=== PATIENT | female | born 2000 | race African-American/Black ===

== ENCOUNTER 2020-07-17 11:12 | Inpatient (IN) | payer BC ==
[2020-07-17] VITALS (8 sets, daily range): BP systolic 116–143; BP diastolic 53–115
[~2020-07-17] VITALS: Ht 162.6 cm; Wt 54.4 kg
--- NOTE | ~2020-07-17 | EMS ---
[address] [address] EMS Patient Care Report Name: JESSICA HIDALGO Room #: PRE M.R.#: [id number] Admission: Attend Phys: Discharge: Date of : 99 Report #: [id number] THIS REPORT FOR: //name// Report Transmitted: 07/17/2020 10:36 EMS Care Summary [place], [place]/[facility] Incident [id number] @ 07/17/2020 10:35 Incident Location [address] [address] Patient JESSICA HIDALGO Female, 19 Years 2000 Patient Address [address] [place] [address] Patient History Asthma,Gastro-Esophageal Reflux Disease (GERD),Type 1 Diabetes, Patient Allergies No known allergies, Patient Medications Insulin, Omeprazole, Albuterol, Chief Complaint CHEST PAIN UPON TAKING A DEEP BREATH Disposition Transported No Lights/[place] Dispatch Reason Chest Pain (Non-Traumatic) Transported To [facility] Narrative DISPATCHED EMERGENCY ON A CHEST PAIN. PUMPER 42 ON SCENE UPON ARRIVAL. 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 GCS 15 AND A/OX4. PT APPEARS ANXIOUS. CONSENTS FOR TX AND TRANSPORTATION. PT STATES THAT SHE WOKE UP AROUND 8 AM WITH CHEST PAIN UPON INHALATION. ALSO [place] [id number] EMS Patient Care Report Name: JESSICA HIDALGO Room #: PRE M.R.#: [id number] Admission: Attend Phys: Discharge: Date of : 99 Report #: [id number] STATES SHE VOMITED AND HER ENTIRE ABD HURTS. DENIES ANY INJURY. ASSISTED WITHOUT INCIDENT TO STRETCHER IN AMBULANCE. PLACED ON MONITOR AND V/S'S OBTAINED. TRANSPORTED TO [facility]. REASSESSED ENROUTE. PAIN REMAINS UNCHANGED. V/S'S CONTINUOUSLY MONITORED ENROUTE. REPORT CALLED TO HOSPITAL. MOVED WITHOUT INCIDENT TO ER HOSPITAL BED 2. PT CARE TRANSFERRED TO ED RN. Initial Vitals @10:55P: 109,R: 31,SpO2: 100, @10:48P: 122,R: 20,BP: 136/83,Pain: 8/10,GCS: 15,SpO2: 100,Revised Trauma: 12,CA Suspected: false @10:53P: 100,R: 22,BP: 130/67,Pain: 8/10,GCS: 15,Revised Trauma: 12, Assessments @10:48MENTAL:Person Oriented,Time Oriented,Event Oriented,Place Oriented,SKIN:HEENT:Eyes: Right Pupil: 3-mm,Eyes: Left Pupil: 3-mm,Head/Face: No Abnormalities,Neck/Airway: No Abnormalities,LUNG SOUNDS:Left Upper: Tenderness,General: Vomiting,Right Lower: Tenderness,Right Upper: Tenderness,Left Lower: Tenderness,ABDOMEN:Left Upper: Tenderness,General: Vomiting,Right Lower: Tenderness,Right Upper: Tenderness,Left Lower: Tenderness,PELVIS//GI:EXTREMITIES:Capillary Refill: Right Lower: < 2 Sec,Capillary Refill: Right Upper: < 2 Sec,Capillary Refill: Left Lower: < 2 Sec,Capillary Refill: Left Upper: < 2 Sec,Left Arm: No Abnormalities,Right Arm: No Abnormalities,Left Leg: No Abnormalities,Right Leg: No Abnormalities,PULSE:Radial: 2+ Normal,NEURO:No Abnormalities, Impression Chest pain on breathing Procedures @10:48ALS AssessmentResponse: UnchangedSucceeded@10:48StretcherResponse: Unchanged@10:483-Lead ECGResponse: UnchangedSucceeded Timeline 10:34,Call Received 10:34,Dispatch Notified 10:35,Dispatched 10:36,En Route 10:46,On Scene 10:48,At Patient 10:48,ALS Assessment,Response: UnchangedSucceeded, 10:48,Stretcher,Response: Unchanged 10:48,3-Lead ECG,Response: UnchangedSucceeded, 10:48,BP: 136/83 M,PULSE: 122,RR: 20 R,SPO2: 100 Ox,ETCO2: ,BG: ,PAIN: 8,GCS: 15, 10:52,Depart Scene [facility] [address] [place] [address] EMS Patient Care Report Name: JESSICA HIDALGO Room #: PRE M.R.#: [id number] Admission: Attend Phys: Discharge: Date of : 99 Report #: [id number] 10:53,BP: 130/67 M,PULSE: 100,RR: 22 R,SPO2: Ox,ETCO2: ,BG: ,PAIN: 8,GCS: 15, 10:55,BP: / M,PULSE: 109,RR: 31 R,SPO2: 100 Ox,ETCO2: ,BG: ,PAIN: ,GCS: , 11:09,At Destination 11:25,Call Closed Disclaimer v1.1 Copyright 2020 [employer] This EMS Care Summary contains data elements from the applicable legal record (which may be displayed differently). It is designed to provide pertinent information for the following purposes: continuity of care, clinical quality, and state data reporting. The complete legal record is available to ED staff and administrators of the receiving hospital in [employer]'s Patient Tracker. All data is provided "as is."
[2020-07-17 11:52] LABS: BE(vivo) -25.4 mmol/L (-2 to +3); HCO3 2.9 mmol/L (22.0-26.0); PCO2 10.6 mmHg (35.0-45.0); PO2 131.7 mmHg (80.0-100.0); pH 7.052 (7.360-7.450); sO2 97.4 % (92.0-98.0)
[2020-07-17 12:01] LABS: HEMATOCRIT 40.2 % (37.0-47.0); HEMOGLOBIN 11.4 gm/dL (12.0-15.0); MCHC 28.2 g/dL (28.0-37.0); MCV 81.3 fL (80.0-100.0); PLATELET COUNT 871 thou/uL (150-400); RBC 4.95 mil/uL (4.20-5.00); RDW 16.4 % (10.5-14.5); WBC 32.7 thou/uL (4.0-11.0)
[2020-07-17 12:04] LABS: URINE BILIRUBIN NEGATIVE (Negative); URINE BLOOD TRACE (Negative); URINE CLARITY CLEAR; URINE COLOR YELLOW; URINE GLUCOSE-RANDOM* 2+ (Negative); URINE KETONES 3+ (Negative); URINE LEUKOCYTES-REFLEX NEGATIVE (Negative); URINE NITRITE-REFLEX NEGATIVE (Negative); URINE PROTEIN (DIPSTICK) TRACE (Negative); URINE SPECIFIC GRAVITY 1.025 (1.005-1.035); URINE UROBILINOGEN 0.2 E.U./dl (0.2-1.0)
[2020-07-17 12:22] LABS: ALBUMIN 4.6 g/dL (3.4-5.0); BUN 21 mg/dL (7-18); CALCIUM 10.5 mg/dL (8.5-10.1); CHLORIDE 102 mmol/L (98-107); CREATININE 1.3 mg/dL (0.6-1.0); LIPASE 158 U/L (73-393); SGOT 143 U/L (15-37); SGPT 58 U/L (14-59); SODIUM 134 mmol/L (136-145); TOTAL BILIRUBIN 0.7 mg/dL (0.2-1.0); TOTAL PROTEIN 9.8 g/dL (6.4-8.2)
[2020-07-17 12:24] LABS: ABSOLUTE NEUTROPHILS 26.5 thou/uL (1.4-8.2); ANION GAP 27 mmol/L (7-16); PLATELET ESTIMATE INCREASED
[2020-07-17 12:26] LABS: ANISOCYTOSIS 1+; HYPOCHROMASIA 1+; LARGE PLATELETS FEW; POTASSIUM 6.9 mmol/L (3.5-5.1)
[2020-07-17 12:27] LABS: CO2 < 5 mmol/L (21-32); GLUCOSE 637 mg/dL (74-106)
[2020-07-17 12:30] LABS: TARGET CELLS FEW
[2020-07-17 12:31] LABS: BURR CELLS FEW; POIKILOCYTOSIS 1+; POLYCHROMASIA SLIGHT
[2020-07-17 13:12] LABS: PHOSPHORUS 7.1 mg/dL (2.6-4.7)
[2020-07-17 13:16] LABS: MAGNESIUM 2.6 mg/dL (1.8-2.4)
--- NOTE | 2020-07-17 14:42 | NUR ---
vascular access called for picc placement. ATTEMPTED VIOLETA BRACHIAL UNABLE TO PASS PICC CATH PAST SHOULDER AREA. ALL OTHER VESSELS IN VIOLETA AND RIKY EITHER TO SMALL FOR CATHETER OR NONCOMPRESSABLE. SPOKE WITH LOC [place], THAT UNABLE PLACE PICC OR MIDLINE. PT REFUSES TO LET ME ASSESS NECK FOR CENTRAL LINE. 2ND PIV STARTED IN RAC AND LABS DRAWN.
[2020-07-17 14:51] LABS: ALBUMIN 4.5 g/dL (3.4-5.0); CALCIUM 9.5 mg/dL (8.5-10.1); CREATININE 1.3 mg/dL (0.6-1.0); PHOSPHORUS 5.1 mg/dL (2.6-4.7)
[2020-07-17 14:54] LABS: POTASSIUM 5.8 mmol/L (3.5-5.1)
--- NOTE | 2020-07-17 15:21 | EKG ---
[address] [place] [address] ELECTROCARDIOGRAM REPORT Name: JESSICA HIDALGO Room #: 170-2 ADM IN M.R.#: [id number] Admission: 07/17/20 Attend Phys: Angelito Arevalo MD Discharge: Date of : 99 Report #: [id number] [facility] ED Test Date: 2020-07-17 Test Time: 12:00:16 Pat Name: JESSICA HIDALGO Department: Room: 170 Gender: F [employer]: gorge : 2000 Requested By: Uriel Alexander Order Number: [id number] MD: Myron Gleason Measurements Intervals [place] Rate: 104 P: 92 NM: 125 QRS: 90 QRSD: 91 T: 59 QT: 360 QTc: 474 Interpretive Statements Sinus tachycardia Biatrial enlargement No previous ECG available for comparison Electronically Signed On 07-17-2020 15:21:32 [employer] by Myron Gleason [email or web address] <ELECTRONICALLY SIGNED> By: Myron Gleason MD, [facility] 07/17/20 1521 1200 [facility] Myron Gleason MD, FACC /EPI
[2020-07-17] MEDS ORDERED: OMEPRAZOLE 20 M20 M1 PO (21:17)
[2020-07-17] MEDS ORDERED: VASOTEC5 MG PO (21:17)
[2020-07-17] MEDS ORDERED: SLOW FE142 MG (21:18)
[2020-07-17 22:04] LABS: HEMATOCRIT 37.9 % (37.0-47.0); HEMOGLOBIN 10.8 gm/dL (12.0-15.0); MCHC 28.5 g/dL (28.0-37.0); MCV 80.6 fL (80.0-100.0); RBC 4.71 mil/uL (4.20-5.00); RDW 16.3 % (10.5-14.5); WBC 36.7 thou/uL (4.0-11.0)
[2020-07-17 22:23] LABS: MAGNESIUM 2.4 mg/dL (1.8-2.4); PHOSPHORUS 3.8 mg/dL (2.6-4.7)
[2020-07-17 22:24] LABS: ALBUMIN 4.1 g/dL (3.4-5.0); CALCIUM 9.5 mg/dL (8.5-10.1); CREATININE 1.2 mg/dL (0.6-1.0); POTASSIUM 5.1 mmol/L (3.5-5.1); TOTAL BILIRUBIN 0.5 mg/dL (0.2-1.0); TOTAL PROTEIN 8.7 g/dL (6.4-8.2)
[2020-07-18] VITALS (31 sets, daily range): BP systolic 96–137; BP diastolic 48–85
[2020-07-18 02:06] LABS: GLYCOHEMOGLOBIN (HGB A1C) 11.5 % (4.8-5.6)
--- NOTE | 2020-07-18 02:54 | NUR ---
This RN admitted patient to ICU room 251 at 1900. Pt on insulin and NS gtt. Patient alert and oriented upon arrival but drowsy. Complaining of weakness and generalized pain. DKA protocol initiated.
--- NOTE | 2020-07-18 02:57 | NUR ---
This RN spoke to mother, Lia at 2000 to discuss patient status and medical history, med rec done with mother at this time.
--- NOTE | 2020-07-18 02:58 | NUR ---
This RN spoke to Dale, father discussing patient status and care. All questions answered.
--- NOTE | 2020-07-18 02:58 | NUR ---
This RN spoke to Lia, mother at 0100 to discuss patient progress and status. All questions answered.
--- NOTE | 2020-07-18 02:59 | NUR ---
This RN discussed critical labs and second lab draw with Jose Nolen NP. Orders received. Will continue to monitor. Patient progressing towards goals.
--- NOTE | 2020-07-18 06:43 | NUR ---
Patient remains on low dose insulin gtt and IV fluids to maintain. Awaiting AM labs, but anion gap currently not closed. Patient stable and is progressing towards goals.
--- NOTE | 2020-07-18 07:34 | NUR ---
PT'S MOTHER GAURAV YUNG CALLED AND GOT PT UPDATE FROM RN. GAURAV STATES SHE WILL BE HERE LATER TODAY TO VISIT PATIENT.
[2020-07-18 08:06] LABS: ALBUMIN 3.7 g/dL (3.4-5.0); CALCIUM 9.2 mg/dL (8.5-10.1); DIRECT BILIRUBIN 0.1 mg/dL (<0.1-0.2); MAGNESIUM 2.4 mg/dL (1.8-2.4); PHOSPHORUS 2.4 mg/dL (2.5-4.9); TOTAL BILIRUBIN 0.6 mg/dL (0.2-1.0); TOTAL PROTEIN 7.5 g/dL (6.4-8.2)
[2020-07-18 08:10] LABS: POTASSIUM 3.6 mmol/L (3.5-5.1)
--- NOTE | 2020-07-18 08:41 | NUR ---
PT PLACED IN ISOLATION PRECAUTIONS FOR COVID-19 RULE OUT. PT'S MOTHER WAS CALLED TO BE INFORMED THAT SHE CANNOT HAVE VISITORS WHILE AWAITING RESULTS. NO ANSWER ON MOTHER'S PHONE. MESSAGE WAS LEFT THAT PT CAN NOT HAVE VISITORS AT THIS TIME.
[2020-07-18 11:49] LABS: HEMATOCRIT 33.3 % (37.0-47.0); MCH 22.8 pg (26.0-34.0); MCHC 29.9 g/dL (28.0-37.0); MCV 76.4 fL (80.0-100.0); RBC 4.36 mil/uL (4.20-5.00); RDW 15.8 % (10.5-14.5)
[2020-07-18 11:50] LABS: WBC 17.8 thou/uL (4.0-11.0)
[2020-07-18 11:51] LABS: PLATELET COUNT 613 thou/uL (150-400)
[2020-07-18 11:57] LABS: CALCIUM 9.5 mg/dL (8.5-10.1); POTASSIUM 3.3 mmol/L (3.5-5.1)
--- NOTE | 2020-07-18 12:30 | NUR ---
PT WAS PLACED IN COVID ISOLATION PRECAUTIONS AFTER PHYSICIAN ROUNDED THIS AM. PT STATED TO PHYSICIAN FEELING SOB. PT DENIES SOB TO THIS RN BUT STATES HAVING ACHES AND PAINS ALL OVER BODY. COVID SWAB SENT TO LAB THIS AM.
--- NOTE | 2020-07-18 12:39 | NUR ---
DR. THOMPSON HOSPITALIST IS MANAGING PT'S DKA, PT REMAINS ON CONTINOUS INSULIN GTT. FLUIDS WERE CHANGED BY PHYSICIAN TO SODIUM BICARB WITH D5W AND PRIOR TO THAT BEING HUNG, THAT ORDER WAS D/C'D AND NEW ORDERS WERE WRITTEN.
[2020-07-18 12:48] LABS: ABSOLUTE NEUTROPHILS 14.8 thou/uL (1.4-8.2)
[2020-07-18 12:50] LABS: ANISOCYTOSIS 1+; HYPOCHROMASIA 1+
[2020-07-18 16:37] LABS: ALBUMIN 3.2 g/dL (3.4-5.0); CALCIUM 8.5 mg/dL (8.5-10.1); MAGNESIUM 1.9 mg/dL (1.8-2.4); PHOSPHORUS 2.8 mg/dL (2.5-4.9); POTASSIUM 3.7 mmol/L (3.5-5.1)
--- NOTE | 2020-07-18 17:41 | NUR ---
PT BLADDER SCANNED AND HAD PRE VOID SCAN AMOUNT OF 568. PT VOIDED VIA COMMODE AND HAD 700MLS OF URINE OUTPUT. PT THEN BLADDER SCANNED AND HAD POST VOID SCAN AMOUNT OF ZERO. WROTE ORDER FOR POST VOID STRAIGHT CATHETER X1 NOW. PT REFUSED AND STATED SHE IS GOING THE BATHROOM WITH OUT ANY DIFFICULTY AND THAT SHE IS NOT GOING TO BE CATHERIZED AT THIS TIME.
[2020-07-18 20:25] LABS: CALCIUM 8.8 mg/dL (8.5-10.1); CREATININE 1.2 mg/dL (0.6-1.0); MAGNESIUM 1.7 mg/dL (1.8-2.4); PHOSPHORUS 1.8 mg/dL (2.6-4.7)
[2020-07-19] VITALS (45 sets, daily range): BP systolic 113–156; BP diastolic 63–91
[2020-07-19 04:08] LABS: ABSOLUTE NEUTROPHILS 7.8 thou/uL (1.4-8.2); BASOPHILS 0.4 % (0.0-2.0); HEMATOCRIT 28.6 % (37.0-47.0); HEMOGLOBIN 8.9 gm/dL (12.0-15.0); LYMPHOCYTES 22.1 % (24.0-44.0); MCHC 30.9 g/dL (28.0-37.0); MCV 74.3 fL (80.0-100.0); MONOCYTES 6.7 % (1.0-8.0); POLYS 67.8 % (36.0-66.0); RBC 3.85 mil/uL (4.20-5.00); RDW 15.8 % (10.5-14.5); WBC 11.5 thou/uL (4.0-11.0)
[2020-07-19 04:11] LABS: PLATELET COUNT 489 thou/uL (150-400)
[2020-07-19 04:19] LABS: ALBUMIN 3.2 g/dL (3.4-5.0); CALCIUM 8.7 mg/dL (8.5-10.1); CREATININE 0.9 mg/dL (0.6-1.0); MAGNESIUM 2.3 mg/dL (1.8-2.4); PHOSPHORUS 1.5 mg/dL (2.5-4.9); POTASSIUM 3.4 mmol/L (3.5-5.1); TOTAL BILIRUBIN 0.5 mg/dL (0.2-1.0); TOTAL PROTEIN 7.1 g/dL (6.4-8.2)
[2020-07-19 16:05] LABS: HEMATOCRIT 29.5 % (37.0-47.0); HEMOGLOBIN 9.2 gm/dL (12.0-15.0); MCH 23.2 pg (26.0-34.0); MCHC 31.3 g/dL (28.0-37.0); MCV 74.2 fL (80.0-100.0); RBC 3.98 mil/uL (4.20-5.00); RDW 16.4 % (10.5-14.5); WBC 8.4 thou/uL (4.0-11.0)
[2020-07-19 16:12] LABS: CALCIUM 8.7 mg/dL (8.5-10.1); CREATININE 0.8 mg/dL (0.6-1.0); MAGNESIUM 1.8 mg/dL (1.8-2.4); POTASSIUM 3.2 mmol/L (3.5-5.1)
--- NOTE | 2020-07-19 19:26 | NUR ---
ASSUMED CARE OF PT 0700. PT APPETITE POOR THROUGHOUT DAY BUT IMPROVING AT DINNER. 1300 PT MOTHER AT BEDSIDE, UPDATED ON PLAN OF CARE. BATH GIVEN TO PT PER FAMILY. 1700 OK TO DC INSULIN GTT AND FLUIDS AND BRIDGE TO SUBQ INSULIN BEFORE MEALS. DIET CHANGED. ADEQUATE URINE OUTPUT. AFEBRILE. NO BM. PROGRESSING IN NURSING PLAN OF CARE.
[2020-07-20 02:09] VITALS: BP 149/78
--- NOTE | 2020-07-20 03:22 | NUR ---
ASSUMED PT CARE AT 1900. VSS. PT A&0X4. PT RESTING IN BED, PT COMPLAINED OF GENERALIZED PAIN; MANANGED PER MAR. PT IS STABLE. TRANSFER ORDERS RECIEVED. REPORT CALLED TO 4W BELL JAMESON. PT TRANSFERED TO ROOM 449 AT 0240 WITH ALL BELONGINGS.
[2020-07-20 05:40] LABS: ABSOLUTE NEUTROPHILS 2.6 thou/uL (1.4-8.2); BASOPHILS 0.5 % (0.0-2.0); EOSINOPHILS 2.6 % (0.0-3.0); HEMATOCRIT 30.3 % (37.0-47.0); HEMOGLOBIN 9.5 gm/dL (12.0-15.0); LYMPHOCYTES 40.8 % (24.0-44.0); MCH 23.3 pg (26.0-34.0); MCHC 31.3 g/dL (28.0-37.0); MCV 74.5 fL (80.0-100.0); MONOCYTES 8.7 % (1.0-8.0); PLATELET COUNT 461 thou/uL (150-400); POLYS 47.4 % (36.0-66.0); RBC 4.07 mil/uL (4.20-5.00); RDW 15.8 % (10.5-14.5); WBC 5.5 thou/uL (4.0-11.0)
[2020-07-20 06:06] LABS: CALCIUM 8.4 mg/dL (8.5-10.1); CREATININE 0.8 mg/dL (0.6-1.0); MAGNESIUM 1.9 mg/dL (1.8-2.4); PHOSPHORUS 2.1 mg/dL (2.5-4.9); POTASSIUM 3.7 mmol/L (3.5-5.1); TOTAL BILIRUBIN 0.4 mg/dL (0.2-1.0); TOTAL PROTEIN 6.8 g/dL (6.4-8.2)
--- NOTE | 2020-07-20 06:16 | NUR ---
ASSUMED CARE OF PT AT 0245HRS FROM ICU. PT IS AOX4 AND LETS NEEDS BE KNOWN. PT IS UP AD LANETTE. PT REPORTED SOME PAIN AND PRN PAIN MEDS GIVEN. PT HAD FSBG OF 354 AT 0410HRS. PHARMACEUTICAL SALESPERSON NOTIFIED. ORDERS RECEIVED AND STARTED. WILL CONTINUE TO MONITOR.
[2020-07-20 07:35] VITALS: BP 131/89
--- NOTE | 2020-07-20 10:09 | NUR ---
Pt seen this am. Pt reports good appetite/PO intakes up until 07/17/20. States would typically eat 5 smaller meals/day. Not hungry this am, but noted consumed 50% of all meals on previous day. Some nausea/vomiting / but none at present. Pt notes UBW of 127# in 07/05. Currently noted at 120# (BMI 20.6). RD encouraged good PO efforts, remains low nutrition risk at this time.
--- NOTE | 2020-07-20 12:52 | 2DMMODE ---
[facility] [place] [address] 2 D/M-MODE ECHOCARDIOGRAM Name: JESSICA HIDALGO Room #: 449-I ADM IN M.R.#: [id number] Admission: 07/17/20 Attend Phys: Angelito Arevalo MD Discharge: Date of : 99 Report #: [id number] THIS REPORT FOR: cc: FAM - Family physician unknown FAM - Family physician unknown Maico Howard MD [facility] ~ APPROVED REPORT Study performed: 07/20/2020 11:41:12 EXAM: Comprehensive 2D, Doppler, and color-flow Echocardiogram Patient Location: Bedside Room #: [facility] Status: routine BSA: 1.57 HR: 94 bpm BP: 149/78 mmHg Rhythm: NSR Other Information Study Quality: Adequate Indications Abnormal ECG Diabetes 2D Dimensions RVDd: 29.87 mm IVSd: 8.66 (7-11mm) LVOT Diam: 16.97 (18-24mm) LVDd: 44.04 mm PWd: 9.05 (7-11mm) Ascending Ao: 23.03 (22-36mm) LVDs: 23.60 (25-40mm) Aortic Root: 24.39 mm IVC: 12.00 mm Volumes Left Atrial Volume (Systole) Single Plane 4CH: 39.06 mL Single Plane 2CH: 48.25 mL LA ESV Index: 30.00 mL/m2 Aortic Valve AoV Peak Kelvin.: 1.67 m/s AO Peak Gr.: 11.09 mmHg LVOT Max P.89 mmHg LVOT Max V: 1.11 m/s BRISSA Vmax: 1.50 cm2 [facility] [address] [place] [address] 2 D/M-MODE ECHOCARDIOGRAM Name: GWENFLASHCHRIS Room #: 449-I [facility] IN [facility]#: [id number] Admission: 07/17/20 Attend Phys: Angelito Arevalo MD Discharge: Date of : 99 Report #: [id number] Mitral Valve E/A Ratio: 1.2 MV Decel. Time: 188.43 ms MV E Max Kelvin.: 1.14 m/s MV A Kelvin.: 0.92 m/s MV PHT: 54.65 ms IVRT: 51.90 ms Pulmonary Valve PV Peak Kelvin.: 1.21 m/s PV Peak Gr.: 5.87 mmHg Pulmonary Vein P Vein S: 0.65 m/s P Vein A: 0.29 m/s P Vein D: 0.49 m/s P Vein A Dur.: 115.3 msec P Vein S/D Ratio: 1.33 Tricuspid Valve TR Peak Kelvin.: 2.40 m/s RAP Estimate: 5.00 mmHg TR Peak Gr.: 23.00 mmHg PA Pressure: 28.00 mmHg Left Ventricle The left ventricle is normal size. There is normal LV segmental wall motion. There is normal left ventricular wall thickness. The left ventricular systolic function is normal. The left ventricular ejection fraction is within the normal range. LVEF is 60-65%. The left ventricular diastolic function is normal. Right Ventricle The right ventricle is normal size. The right ventricular systolic function is normal. Atria The left atrium size is normal. The right atrium size is normal. Aortic Valve The aortic valve is normal in structure. No aortic regurgitation is present. There is no aortic valvular stenosis. Mitral Valve The mitral valve is normal in structure. There is no mitral valve regurgitation noted. No evidence of mitral valve stenosis. Tricuspid Valve [facility] [address] [place] [address] 2 D/M-MODE ECHOCARDIOGRAM Name: JESSICA HIDALGO Room #: 449-I ADM IN .R.#: [id number] Admission: 07/17/20 Attend Phys: Angelito Arevalo MD Discharge: Date of : 99 Report #: [id number] The tricuspid valve is normal in structure. Trace tricuspid regurgitation. PAP is estimated at 28 mmHg. Pulmonic Valve The pulmonary valve is normal in structure. There is no pulmonic valvular regurgitation. Great Vessels The aortic root is normal in size. IVC is normal in size and collapses >50% with inspiration. Pericardium There is no pericardial effusion. <Conclusion> Normal left ventricle size/wall thickness EF 60-65% Normal right heart size/function Normal atrial size Color-flow Doppler study of the aortic/mitral/tricuspid/pulmonary valve was performed Normal aortic/mitral valve structure and function Trace tricuspid valve insufficiency Pulmonary artery systolic pressure estimated at 28 mmHg No pericardial effusion <ELECTRONICALLY SIGNED> By: Maico Howard MD, FACC 07/20/20 1251 1251 125 Maico Howard MD, FACC /INF
[2020-07-20 14:42] VITALS: BP 117/71
[2020-07-20 15:04] VITALS: BP 131/89
--- NOTE | 2020-07-20 15:08 | NUR ---
Chart reviewed and case discussed with the care team. Clinical Data Manager attempted to reach the pt in her room. Pt's mother Brenda here at bedside and able to completed the pt assessment as she was resting. 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 Due to her age she is trying to transfer to adult specialists and has recently established a pcp,Dr.Karla Hyman whom she say in May. She has yet to find an adult ENDO. [facility] office number provided should she wish to f/u here. Pt's mother notes that the pt lives with her parents and her insurance is maintained through her father's employer. She was on the Omnipod insulin pump through her Dr. Batista at [facility] but their ins does not cover it and outside financial assistance has been limited. She was in the process and transitioning back to daily insulin shots as the coverage for the pump ended 07-16-20. Pt's mother is very supportive and knowledgeable about goodrx and pt assistance programs as well as diabetic care. They will help the pt locate an adult endo for f/u care at hi. Support provided. No other cm interventions indicated at this time.
--- NOTE | 2020-07-20 17:01 | NUR ---
ASSUMED CARE OF THE PATIENT AT 0715, PATIENT ALERT AND ORIENTED X 4, PATIENT UP AD LANETTE, BUT THIS RN INSTRUCTED THE PATIENT TO CALL FOR ASSISTANCE IF SHE FEELS WEAK, PATIENT VERBALIZE UNDERSTANDING. BLOOD SUGAR STILL RUNNING ELEVATED, NOON BLOOD SUGAR DROPPED TO 55, TREATED WITH JUICE AND PATIENT UP TO 128, NO INSULIN GIVEN AT LUNCH TIME. PATIENT CONTINUES TO C/O HEADACHE, HYDROCODONE 1 TABLET GIVEN THIS SHIFT X 2M THIS RN NOTIFIED DR DOZIER OF PATIENT REQUESTING MOTRIN FOR H/A NO RESPONSE FROM PAGE OR Victorious MESSAGE. MOTHER AT BEDSIDE. POSSIBLE DISCHARGE TOMORROW.
[2020-07-20 19:34] VITALS: BP 121/87
[2020-07-20 20:16] LABS: CALCIUM 8.9 mg/dL (8.5-10.1); MAGNESIUM 1.9 mg/dL (1.8-2.4); PHOSPHORUS 2.6 mg/dL (2.6-4.7); POTASSIUM 3.9 mmol/L (3.5-5.1)
--- NOTE | 2020-07-21 05:55 | NUR ---
Assumed pt care at 1900. A/OX4,VSS. Up with SBA d/t weakness.C/o headache medicated with Ibuprofen with relief reported. NSR on telemetry. Pt encouraged to call as needed for help. Resting quietly at this time w/o any distress noted. Will continue to monitor pt.
[2020-07-21 06:42] LABS: CALCIUM 8.8 mg/dL (8.5-10.1); CREATININE 0.8 mg/dL (0.6-1.0); MAGNESIUM 1.8 mg/dL (1.8-2.4); PHOSPHORUS 2.7 mg/dL (2.5-4.9)
[2020-07-21] MEDS ORDERED: ZOFRAN 4 MG ORAL4 MG PO (09:15)
[2020-07-21] MEDS ORDERED: LANTUS SUBQ (09:15)
[2020-07-21] MEDS ORDERED: HUMALOG100 UNIT/1 SUBQ (09:15)
--- NOTE | 2020-07-21 09:32 | HC ---
[facility] [place] [address] [address] CONSULTATION Name: JESSICA HIDALGO Room #: 449-I ADM IN M.R.#: [id number] Admission: 07/17/20 Attend Phys: Angelito Arevalo MD Discharge: Date of : 99 Report #: [id number] THIS REPORT FOR: cc: NIMESH - Family physician unknown FAM - Family physician unknown Brodie Rizzo MD ~ DATE OF SERVICE: 07/20/2020 ENDOCRINE CONSULTATION NOTE CONSULTING PHYSICIAN: Dr. Arevalo. REASON FOR CONSULTATION: DKA, type 1 diabetes mellitus. HISTORY OF PRESENT ILLNESS: This is a 19-year-old female patient whose medical background is significant for type 1 diabetes mellitus diagnosed at the age of 10. The patient presented to the ER with complaints of intractable nausea, vomiting and abdominal discomfort and was found to be in diabetic ketoacidosis. Subsequently, she was admitted and managed with intravenous insulin therapy and IV fluid support, with which she has done well and managed to resolve ketoacidosis. The patient notes that she was treated with Omnipod continuous insulin infusion therapy for about 2 months, but that her support for Omnipod coverage has ended which led her to resume multiple daily insulin injections. A few days ago, she has started coverage with Tresiba 24 units daily as well as Humalog insulin, which she does according to a scale and averages around 8-12 units per meal. She notes that her blood glucose values have proven to be very difficult to control since she went back to multiple daily injections of insulin. However, it is noted that her hemoglobin A1c has dropped from over 14%-11.2% as documented last month for the period of time that she was using insulin pump therapy. Her course with diabetes has been complicated by issues of gastroparesis, but not retinopathy, nephropathy or neuropathy. REVIEW OF SYSTEMS: CONSTITUTIONAL: Fatigue, tiredness, but no fever, chills or body weight changes. HEENT: Negative for sore throat, sinus pain or ear drainage. PULMONARY: The patient was recently diagnosed with asthma, but she denies active difficulties with wheezing, cough or shortness of breath. CARDIAC: Negative for chest pain, palpitations, syncope or presyncope. GASTROINTESTINAL: Noted for baseline difficulties with gastroparesis and intermittent difficulties with nausea and vomiting. She follows with a [facility] [address] [address] CONSULTATION Name: JESSICA HIDALGO Room #: [address] [place] [address] [place] [facility].#: [id number] Admission: 07/17/20 Attend Phys: Angelito Arevalo MD Discharge: Date of : 99 Report #: [id number] bone puller. NEUROLOGY: Negative for loss of consciousness, severe frequent headaches or seizure activity. Otherwise, review of systems noncontributory other than those mentioned in HPI. PAST MEDICAL HISTORY: 1. Type 1 diabetes mellitus. 2. Diabetic gastroparesis. 3. Asthma. 4. History of lung nodules. 5. History of pancreatitis. 6. History of lung surgery. OUTPATIENT MEDICATIONS: 1. Tresiba 24 units daily. 2. Humalog insulin as per sliding scale, taking an average of 8-12 units per meal. 3. Omeprazole. 4. Dicyclomine. ALLERGIES: No known drug allergies. FAMILY HISTORY: Noncontributory. SOCIAL HISTORY: The patient denies use of tobacco, alcohol or illicit drugs. She lives with her mother. She does not have children. PHYSICAL EXAMINATION: GENERAL: Young female patient who is not in apparent pain or distress. VITAL SIGNS: Blood pressure is 131/89 mmHg, heart rate is 87 beats per minute, respiration 18 per minute, temperature 36.7 degrees Celsius. CONSTITUTIONAL: She appears generally comfortable, not in apparent distress. HEENT: Anicteric sclerae. Intact extraocular motions. NECK: Supple, without JVD, carotid bruits or lymphadenopathy. I do not appreciate thyromegaly. CHEST: Clear to auscultation with good air entry bilaterally. HEART: Regular rate and rhythm without murmurs or gallops. ABDOMEN: Soft, lax. No guarding. Active bowel sounds. EXTREMITIES: Lower extremity exam negative for ankle edema, skin breaks or ulcerations. NEUROLOGIC: Awake, alert and oriented to time, place and person. The remainder of her examination is nonfocal. PSYCH: Interactive. Normal mood and affect. [address] [address] CONSULTATION Name: JESSICA HIDALGO Room #: 449-I [facility] IN M.R.#: [id number] Admission: 07/17/20 Attend Phys: Angelito Arevalo MD Discharge: Date of : 99 Report #: [id number] LABORATORY DATA: Blood glucose values were reviewed for the length of her hospital stay and she has had a predominant percentage of these over 200 mg/dL and occasionally over 300 mg/dL. Earlier today, her blood glucose before lunch was 55 and after 128 mg/dL. Otherwise, sodium 139, potassium 3.7, chloride 101, CO2 of 24, anion gap of 14, it was at 27 on arrival. BUN 5, creatinine 0.8, AST 24, lipase 158, total bilirubin 0.4, direct bilirubin 0.1, calcium 8.4, phosphorus 2.1, magnesium 1.9, alkaline phosphatase 117, ALT 29, total protein 6.8, albumin 3. EGFR 111. White blood count 5.5, hemoglobin 9.5, hematocrit 30.3, platelets 461. Hemoglobin A1c 11.5%. ASSESSMENT AND PLAN: 1. Diabetic ketoacidosis. As noted above, the patient presented with clinical and metabolic evidence of diabetic ketoacidosis. This has resolved with the appropriate management with intravenous insulin therapy and IV fluid support. 2. Type 1 diabetes mellitus. The patient has an uncontrolled baseline as per her report and as per her documented hemoglobin A1c. I believe that the disruption of her outpatient therapy as she transitioned from insulin pump therapy to multiple daily injections has contributed to her acute worsening. It is of note that Tresiba takes 6 days to achieve therapeutic state and the patient was possibly with limited basal insulin coverage when she first started her to receive therapy again a few days ago. I stressed the need for achieving and maintaining adequate glycemic control to avoid future diabetic complications. I stressed the importance of effective diet and exercise measures in this regard. I also highlighted the importance of consistent therapy and indicated that if she wishes to resume insulin pump therapy, which she does, then this will have to be done in a manner where consistency of therapy is somewhat guaranteed. In the immediate setting, the patient seems to be regaining stability. She is currently on Lantus insulin 10 units b.i.d., which is fairly reasonable. She is also on Humalog insulin 10 units with meals, which I believe has proven to be excessive as per her blood glucose values earlier today. That said, I will drop her meal Humalog coverage to 6 units t.i.d. and maintain the current Lantus coverage as well as ongoing support with Humalog supplemental scale low intensity. Blood glucose monitoring will continue a.c. and at bedtime and further therapeutic adjustments will be made accordingly. I certainly appreciate this consultation by Dr. Arevalo. <ELECTRONICALLY SIGNED> By: Brodie Rizzo MD 07/21/20 0932 1343 1414 rBodie Rizzo MD /nt
--- NOTE | 2020-07-21 12:30 | NUR ---
Assumed pt care this am, vs stable blood sugar monitored medications given as per emar. Educated on the use of new medications (insulin), mother at the bed side. IV removed, pt dc, instructions given to the pt medications sent to the pharmacy. Pt is now dc.
== END 2020-07-21 12:14 | disposition home or self-care (01) | DRG 638 ==
LOC: ER 11:12 → EROBS 12:49 → 4W 12:49 → ICU 19:10 → 4W 07-20 02:45
PROVIDERS: Emergency Medicine; Internal Medicine; Nurse Practitioner; ADMIT Hospitalist; ATTEND Hospitalist
PROC: 05JYXZZ Inspection of Upper Vein, External Approach (ICD-10-PCS; principal; 2020-07-17)
DX: E10.10 Type 1 diabetes mellitus with ketoacidosis without coma (principal); I38 Endocarditis, valve unspecified; E46 Unspecified protein-calorie malnutrition; E87.0 Hyperosmolality and hypernatremia; Z20.822 Contact with and (suspected) exposure to COVID-19; J45.909 Unspecified asthma, uncomplicated; T38.3X6A Underdosing of insulin and oral hypoglycemic [antidiabetic] drugs, initial encounter; E10.43 Type 1 diabetes mellitus with diabetic autonomic (poly)neuropathy; K31.84 Gastroparesis; E87.6 Hypokalemia; E83.39 Other disorders of phosphorus metabolism; F32.9 Major depressive disorder, single episode, unspecified; E87.5 Hyperkalemia; E87.8 Other disorders of electrolyte and fluid balance, not elsewhere classified; Z79.4 Long term (current) use of insulin; Y92.89 Other specified places as the place of occurrence of the external cause; Z79.899 Other long term (current) drug therapy; Z68.20 Body mass index [BMI] 20.0-20.9, adult
CPT/HCPCS: 10045; 10078; 10203